=== PATIENT | female | born 1945 | race Caucasian/White ===

== ENCOUNTER 2017-08-29 03:20 | Inpatient (IN) | payer MEDICARE, OTHER ==
[2017-08-29] MEDS ORDERED: Aspirin 81 MG Tab.Chew PO ONE (04:26)
[2017-08-29] MEDS ORDERED: fentaNYL 100 MCG/2 ML SDV IVPUSH ONE ×5 (04:27→08:46)
[2017-08-29] MEDS ORDERED: Ondansetron 4 MG/2 ML SDV IVPUSH ONE ×2 (04:28→07:32)
--- NOTE | 2017-08-29 04:30 | EDM.PDOC ---
<OfficerMicah - Last Filed: 08/29/17 04:30> ED HPI GENERAL MEDICAL PROBLEM - General Chief Complaint: Abdominal Pain Stated Complaint: ABD PAIN Time Seen by Provider: 08/29/17 04:21 Source of Information: Reports: Patient, RN Notes Reviewed History Limitations: Reports: No Limitations - History of Present Illness INITIAL COMMENTS - FREE TEXT/NARRATIVE: 71-year-old female presents to the emergency department day complaint of epigastric pain she states it's in the center of the chest wraps around both sides and go straight into the back. She feels short of breath with this has had nausea and vomiting no diaphoresis pain started last night at 5:30 Upper Abdominal Pain Score (Numeric/FACES): 9 - Related Data Allergies Allergy/AdvReac Type Severity Reaction Status Date / Time Sulfa (Sulfonamide Allergy Itching Verified 08/29/17 03:47 Antibiotics) tramadol Allergy Hallucinati Verified 08/29/17 03:47 ons Home Meds: Home Meds *Antidepressant Med - Blue Pil 08/29/17 [History] Calcium Carbonate [Calcium] 600 mg PO BID 08/29/17 [History] Omeprazole 20 mg PO DAILY 08/29/17 [History] Past Medical History HEENT History: Reports: Allergic Rhinitis, Impaired Vision Cardiovascular History: Reports: Blood Clots/VTE/DVT Respiratory History: Reports: Sleep Apnea Gastrointestinal History: Reports: Colon Polyp, GERD 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: Musculoskeletal History: Reports: Arthritis Hematologic History: Reports: Blood Transfusion(s) Dermatologic History: Reports: Eczema - Infectious Disease History Infectious Disease History: Reports: Chicken Pox, Measles - Past Surgical History HEENT Surgical History: Reports: Oral Surgery, Other (See Below) Other HEENT Surgeries/Procedures: ear drum replaced GI Surgical History: Reports: Colonoscopy, Polypectomy Female Surgical History: Reports: Section Musculoskeletal Surgical History: Reports: Knee Replacement, Other (See Below) Other Musculoskeletal Surgeries/Procedures:: foot surgeries Social & Family History - Tobacco Use Smoking Status *Q: Never Smoker - Caffeine Use Caffeine Use: Reports: Coffee - Alcohol Use Days Per Week of Alcohol Use: 5 Number of Drinks Per Day: 3 Total Drinks Per Week: 15 - Recreational Drug Use Recreational Drug Use: No ED ROS GENERAL - Review of Systems Review Of Systems: See Below Constitutional: Reports: No Symptoms HEENT: Reports: No Symptoms Respiratory: Reports: Shortness of Breath Cardiovascular: Reports: No Symptoms GI/Abdominal: Reports: Abdominal Pain (Epigastric pain), Nausea, Vomiting : Reports: No Symptoms Musculoskeletal: Reports: No Symptoms Skin: Reports: No Symptoms ED EXAM, GENERAL - Physical Exam Exam: See Below Exam Limited By: No Limitations General Appearance: Alert, Mild Distress Throat/Mouth: Normal Inspection, Normal Lips, Normal Teeth, Normal Gums, Normal Oropharynx, Normal Voice, No Airway Compromise Head: Atraumatic, Normocephalic Neck: Normal Inspection, Supple, Non-Tender, Full Range of Motion Respiratory/Chest: No Respiratory Distress, Lungs Clear, Normal Breath Sounds, No Accessory Muscle Use Cardiovascular: No Murmur, Bradycardia GI/Abdominal: Soft, Non-Tender Back Exam: Normal Inspection. No: CVA Tenderness (R), CVA Tenderness (L) Extremities: No Pedal Edema Course - Vital Signs Last Recorded V/S: Last Vital Signs Temp 36.1 C 08/29/17 07:54 Pulse 60 08/29/17 07:54 Resp 16 08/29/17 07:54 BP 179/68 H 08/29/17 07:54 Pulse Ox 98 08/29/17 07:54 - Orders/Labs/Meds Orders: Active Orders 24 hr Category Date Time Status Cardiac Monitoring [RC] .As Directed Care 08/29/17 04:26 Active EKG Documentation Completion [RC] ASDIRECTED Care 08/29/17 04:27 Active Peripheral IV Care [RC] . DIRECTED Care 08/29/17 04:28 Active Abdomen Pelvis w Cont [CT] Stat Exams 08/29/17 06:00 Taken Chest 2V [CR] Stat Exams 08/29/17 04:27 Taken Sodium Chloride 0.9% [Saline Flush] Med 08/29/17 04:28 Active 10 ml FLUSH ASDIRECTED PRN Peripheral IV Insertion Adult [OM.PC] Urgent Oth 08/29/17 04:28 Ordered EKG 12 Lead [EK] Stat Ther 08/29/17 04:27 Ordered Medication Orders Sodium Chloride (Saline Flush) 10 ml FLUSH ASDIRECTED PRN PRN Reason: Keep Vein Open Last Admin: 08/29/17 07:48 Dose: 10 ml Admin: 08/29/17 07:42 Dose: 10 ml Admin: 08/29/17 05:00 Dose: 10 ml Labs: Laboratory Tests 08/29/17 08/29/17 08/29/17 Range/Units 04:30 04:30 04:30 WBC 8.6 (4.5-11.0) K/uL RBC 4.43 (3.30-5.50) M/uL Hgb 13.3 (12.0-15.0) g/dL Hct 39.8 (36.0-48.0) % MCV 90 (80-98) fL MCH 30 (27-31) pg MCHC 33 (32-36) % Plt Count 274 (150-400) K/uL Neut % (Auto) 82 H (36-66) % Lymph % (Auto) 12 L (24-44) % [place] % (Auto) 6 (2-6) % Eos % (Auto) 0 L (2-4) % Baso % (Auto) 0 (0-1) % D-Dimer, Quantitative 233 (0.0-400.0) ng/mL Sodium 139 L (140-148) mmol/L Potassium 4.3 (3.6-5.2) mmol/L Chloride 104 (100-108) mmol/L Carbon Dioxide 24 (21-32) mmol/L Anion Gap 15.3 H (5.0-14.0) mmol/L BUN 21 H (7-18) mg/dL Creatinine 1.0 (0.6-1.0) mg/dL Est Cr Clr Drug Dosing 51.63 mL/min Estimated GFR (MDRD) 55 L (>60) Glucose 146 H (74-106) mg/dL Calcium 9.3 (8.5-10.1) mg/dL Total Bilirubin 0.4 (0.2-1.0) mg/dL AST 18 (15-37) U/L ALT 25 (12-78) U/L Alkaline Phosphatase 62 (46-116) U/L CK-MB (CK-2) 1.6 (0-3.6) mg/mL Troponin I < 0.017 (0.000-0.056) ng/mL Total Protein 7.3 (6.4-8.2) g/dL Albumin 3.6 (3.4-5.0) g/dL Globulin 3.7 H (2.3-3.5) g/dL Albumin/Globulin Ratio 1.0 L (1.2-2.2) Lipase 88 (73-393) U/L Meds: Medications Generic Name Dose Route Start Last Admin Trade Name Freq PRN Reason Stop Dose Admin Sodium Chloride 10 ml 08/29/17 04:28 08/29/17 07:48 Saline Flush FLUSH 10 ml ASDIRECTED PRN Administration Keep Vein Open Discontinued Medications Generic Name Dose Route Start Last Admin Trade Name Freq PRN Reason Stop Dose Admin Aspirin 324 mg 08/29/17 04:26 08/29/17 04:59 Aspirin PO 08/29/17 04:27 324 mg ONETIME ONE Administration Fentanyl 50 mcg 08/29/17 04:27 08/29/17 05:00 Sublimaze IVPUSH 08/29/17 04:28 50 mcg ONETIME ONE Administration Fentanyl 50 mcg 08/29/17 06:00 08/29/17 06:06 Sublimaze IVPUSH 08/29/17 06:01 50 mcg ONETIME ONE Administration Fentanyl 100 mcg 08/29/17 07:32 Sublimaze IVPUSH 08/29/17 07:33 ONETIME ONE Fentanyl 50 mcg 08/29/17 07:44 08/29/17 07:46 Sublimaze IVPUSH 08/29/17 07:45 50 mcg ONETIME ONE Administration Fentanyl 50 mcg 08/29/17 08:46 Sublimaze IVPUSH 08/29/17 08:47 ONETIME ONE Lactated Ringer's 1,000 mls @ 999 mls/hr 08/29/17 05:46 08/29/17 06:06 Ringers, Lactated IV 08/29/17 06:46 999 mls/hr BOLUS ONE Administration Sodium Chloride 82 mls @ 4 mls/sec 08/29/17 06:08 08/29/17 06:18 Normal Saline IV 08/29/17 06:09 4 mls/sec ASDIRECTED STA Administration Iopamidol 138 ml 08/29/17 06:07 08/29/17 06:18 Isovue-300 (61%) IV 08/29/17 06:08 150 ml . DIRECTED STA Administration Ondansetron HCl 4 mg 08/29/17 04:28 08/29/17 05:00 Zofran IVPUSH 08/29/17 04:29 4 mg ONETIME ONE Administration Ondansetron HCl 4 mg 08/29/17 07:32 08/29/17 07:40 Zofran IVPUSH 08/29/17 07:33 4 mg ONETIME ONE Administration Departure - Departure Disposition: Admitted As Inpatient 68 Clinical Impression: Cholecystitis Referrals: PCP,None [Primary Care Provider] - Forms: ED Department Discharge <Bradley Serrano - Last Filed: 08/29/17 08:54> Course - Vital Signs Text/Narrative:: Dr. Eulogio Livingston notified @ [facility] [place], to see in ER. - Radiology Interpretation Free Text/Narrative:: Abdominal CT suggestive of acute cholecystitis. CT Results Date: 08/29/17 CT Results Time: 08:05 Departure - Departure Time of Disposition: 09:00 Condition: Fair
[2017-08-29] MEDS: Sodium Chloride 0.9% 10 ML Syringe FLUSH PRN ×4 (05:00→09:03)
[2017-08-29] MEDS ORDERED: Lactated Ringers 1,000 ML IV ONE (05:46)
[2017-08-29] MEDS ORDERED: Iopamidol 612 MG/ML 150 ML Bottle IV STA (06:07)
[2017-08-29] MEDS ORDERED: cefOXitin 2 GM in Sodium Chloride 0.9% 50 ML IV ONE (09:29)
--- NOTE | 2017-08-29 09:33 | CR ---
CHEST: 2 view CLINICAL HISTORY:Chest pain COMPARISON:None FINDINGS: Heart size and pulmonary vascularity are normal. No infiltrate effusion or pneumothorax is seen.. IMPRESSION: No acute cardiopulmonary process
--- NOTE | 2017-08-29 09:37 | PCM.HP ---
H&P History of Present Illness - General Date of Service: 08/29/17 Source of Information: Patient History Limitations: Reports: No Limitations - History of Present Illness Initial Comments - Free Text/Narative: Ani states that she developed mid epigastric chest pain that radiated around to her back and straight through her back between her shoulder blades. Associated with nausea, diaphoresis and shortness of breath. After a work up in ED she was found to have cholecysitis. Diet yesterday consisted of fatty foods and 2 - 3 beers and another alcoholic beverage. States she had one episode about 30 years ago and then another episode about 1 month ago after eating a deep fat fried shrimp basket. Onset of Symptoms: Reports: Today, Sudden Duration of Symptoms: Reports: Constant Location: Reports: Abdomen Quality: Reports: Pressure, Stabbing, Throbbing Improves with: Reports: Medication Worsens with: Reports: None Context: Reports: Sick Contact Associated Symptoms: Reports: Diaphoresis, Nausea/Vomiting Upper Abdominal Pain Score (Numeric/FACES): 4 - Related Data Allergies/Adverse Reactions: Allergies Allergy/AdvReac Type Severity Reaction Status Date / Time Sulfa (Sulfonamide Allergy Itching Verified 08/29/17 03:47 Antibiotics) tramadol Allergy Hallucinati Verified 08/29/17 03:47 ons Home Medications: Home Meds *Antidepressant Med - Blue Pil 08/29/17 [History] Calcium Carbonate [Calcium] 600 mg PO BID 08/29/17 [History] Omeprazole 20 mg PO DAILY 08/29/17 [History] Past Medical History HEENT History: Reports: Allergic Rhinitis, Impaired Vision Cardiovascular History: Reports: Blood Clots/VTE/DVT Respiratory History: Reports: Sleep Apnea Gastrointestinal History: Reports: Colon Polyp, GERD 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: Musculoskeletal History: Reports: Arthritis Hematologic History: Reports: Blood Transfusion(s) Dermatologic History: Reports: Eczema - Infectious Disease History Infectious Disease History: Reports: Chicken Pox, Measles - Past Surgical History HEENT Surgical History: Reports: Oral Surgery, Other (See Below) Other HEENT Surgeries/Procedures: ear drum replaced GI Surgical History: Reports: Colonoscopy, Polypectomy Female Surgical History: Reports: Section Musculoskeletal Surgical History: Reports: Knee Replacement, Other (See Below) Other Musculoskeletal Surgeries/Procedures:: foot surgeries Social & Family History - Tobacco Use Smoking Status *Q: Never Smoker - Caffeine Use Caffeine Use: Reports: Coffee - Alcohol Use Days Per Week of Alcohol Use: 5 Number of Drinks Per Day: 3 Total Drinks Per Week: 15 - Recreational Drug Use Recreational Drug Use: No H&P Review of Systems - Review of Systems: Review Of Systems: See Below General: Reports: Fatigue HEENT: Reports: No Symptoms Pulmonary: Reports: Other (Sleep apnea - uses a CPAP at home ) Cardiovascular: Reports: Chest Pain (more upper abdomen.) Gastrointestinal: Reports: Abdominal Pain (see above) Genitourinary: Reports: No Symptoms Musculoskeletal: Reports: Joint Swelling Skin: Reports: No Symptoms Psychiatric: Reports: No Symptoms Exam - Exam Exam: See Below - Vital Signs Vital Signs: Last Vital Signs Temp 97 F 08/29/17 07:54 Pulse 60 08/29/17 07:54 Resp 16 08/29/17 07:54 BP 179/68 H 08/29/17 07:54 Pulse Ox 98 08/29/17 07:54 Weight: 202 lb 9.677 oz - Exam General: Alert, Oriented, Mild Distress HEENT: PERRLA Neck: Supple, Trachea Midline Lungs: Clear to Auscultation, Normal Respiratory Effort Cardiovascular: Regular Rate, Regular Rhythm GI/Abdominal Exam: Other (Tenderness in the right upper quadrant and mid epigastric area) (Female) Exam: Deferred Rectal (Female) Exam: Deferred Back Exam: Normal Inspection, Full Range of Motion Extremities: Normal Inspection, Normal Range of Motion Skin: Warm, Dry, Intact Neurological: Cranial Nerves Intact Neuro Extensive - Mental Status: Alert, Oriented x3, Normal Mood/Affect Neuro Extensive - Motor, Sensory, Reflexes: CN II-XII Intact Psychiatric: Alert, Normal Affect - Patient Data Lab Results Last 24 hrs: Laboratory Results - last 24 hr 08/29/17 08/29/17 08/29/17 Range/Units 04:30 04:30 04:30 WBC 8.6 (4.5-11.0) K/uL RBC 4.43 (3.30-5.50) M/uL Hgb 13.3 (12.0-15.0) g/dL Hct 39.8 (36.0-48.0) % MCV 90 (80-98) fL MCH 30 (27-31) pg MCHC 33 (32-36) % Plt Count 274 (150-400) K/uL Neut % (Auto) 82 H (36-66) % Lymph % (Auto) 12 L (24-44) % [place] % (Auto) 6 (2-6) % Eos % (Auto) 0 L (2-4) % Baso % (Auto) 0 (0-1) % D-Dimer, Quantitative 233 (0.0-400.0) ng/mL Sodium 139 L (140-148) mmol/L Potassium 4.3 (3.6-5.2) mmol/L Chloride 104 (100-108) mmol/L Carbon Dioxide 24 (21-32) mmol/L Anion Gap 15.3 H (5.0-14.0) mmol/L BUN 21 H (7-18) mg/dL Creatinine 1.0 (0.6-1.0) mg/dL Est Cr Clr Drug Dosing 51.63 mL/min Estimated GFR (MDRD) 55 L (>60) Glucose 146 H (74-106) mg/dL Calcium 9.3 (8.5-10.1) mg/dL Total Bilirubin 0.4 (0.2-1.0) mg/dL AST 18 (15-37) U/L ALT 25 (12-78) U/L Alkaline Phosphatase 62 (46-116) U/L CK-MB (CK-2) 1.6 (0-3.6) mg/mL Troponin I < 0.017 (0.000-0.056) ng/mL Total Protein 7.3 (6.4-8.2) g/dL Albumin 3.6 (3.4-5.0) g/dL Globulin 3.7 H (2.3-3.5) g/dL Albumin/Globulin Ratio 1.0 L (1.2-2.2) Lipase 88 (73-393) U/L Result Diagrams: 08/29/17 04:30 08/29/17 04:30 - Problem List (1) Bradycardia SNOMED Code(s): 89759321 ICD Code: R00.1 - BRADYCARDIA, UNSPECIFIED Status: Acute Current Visit: Yes (2) Cholecystitis SNOMED Code(s): 05181862 ICD Code: K81.9 - CHOLECYSTITIS, UNSPECIFIED Status: Acute Current Visit : Yes (3) Abdominal pain SNOMED Code(s): 98326834 ICD Code: R10.9 - UNSPECIFIED ABDOMINAL PAIN Status: Acute Current Visit : No Qualifiers: Abdominal location: right upper quadrant Qualified Code(s): R10.11 - Right upper quadrant pain Problem List Initiated/Reviewed/Updated: Yes Orders Last 24hrs: Active Orders 24 hr Category Date Time Status Cardiac Monitoring [RC] .As Directed Care 08/29/17 04:26 Active EKG Documentation Completion [RC] ASDIRECTED Care 08/29/17 04:27 Active Peripheral IV Care [RC] . DIRECTED Care 08/29/17 04:28 Active Abdomen Pelvis w Cont [CT] Stat Exams 08/29/17 06:00 Taken Chest 2V [CR] Stat Exams 08/29/17 04:27 Taken Dextrose 5%-Lactated Ringers 1,000 ml Med 08/29/17 09:30 Active IV ASDIRECTED Sodium Chloride 0.9% [Saline Flush] Med 08/29/17 04:28 Active 10 ml FLUSH ASDIRECTED PRN cefOXitin [Mefoxin] 2 gm Med 08/29/17 09:29 Active Sodium Chloride 0.9% [Normal Saline] 50 ml IV ONETIME Peripheral IV Insertion Adult [OM.PC] Urgent Oth 08/29/17 04:28 Ordered EKG 12 Lead [EK] Stat Ther 08/29/17 04:27 Ordered Medication Orders Cefoxitin Sodium 2 gm/ Sodium (Chloride) 50 mls @ 100 mls/hr IV ONETIME ONE Stop: 08/29/17 09:58 Dextrose/Lactated Ringer's (Dextrose 5%-Lactated Ringers) 1,000 mls @ 100 mls/ hr IV ASDIRECTED ORTIZ Sodium Chloride (Saline Flush) 10 ml FLUSH ASDIRECTED PRN PRN Reason: Keep Vein Open Last Admin: 08/29/17 09:03 Dose: 10 ml Admin: 08/29/17 07:48 Dose: 10 ml Admin: 08/29/17 07:42 Dose: 10 ml Admin: 08/29/17 05:00 Dose: 10 ml Assessment/Plan Comment:: Assessment: Cholecystitis Plan: Laparoscopic possible Open Cholecystectomy for Acute Cholecystitis - General Anesthesia - Case to Follow - Rob Livingston MD Cefoxitin 2 grams economics consultant to OR Cleared for General Anesthesia Shoshana Martinez 08/29/17
[2017-08-29] MEDS ORDERED: Bupivacaine 0.5%/EPINEPHrine 1:200,000 50 ML MDV ONE (09:43)
[2017-08-29] MEDS: Dextrose 5%-Lactated Ringers 1,000 ML IV SCH ×3 (09:46→23:09)
[2017-08-29] MEDS ORDERED: Dexamethasone 4 MG/ML SDV ONE (09:57)
[2017-08-29] MEDS ORDERED: Ondansetron 4 MG/2 ML SDV ONE (09:57)
[2017-08-29] MEDS ORDERED: Propofol 200 MG/20 ML SDV ONE (09:57)
[2017-08-29] MEDS ORDERED: Neostigmine Methylsulfate 1 MG/ML 5 ML Syringe ONE (09:57)
[2017-08-29] MEDS ORDERED: Glycopyrrolate 0.2 MG/ML 5 ML MDV ONE (09:57)
[2017-08-29] MEDS ORDERED: Succinylcholine 200 MG/10 ML MDV ONE (09:57)
[2017-08-29] MEDS ORDERED: fentaNYL 250 MCG/5 ML SDV ONE (09:57)
[2017-08-29] MEDS ORDERED: Rocuronium 50 MG/5 ML Vial ONE (09:57)
[2017-08-29] MEDS ORDERED: Ketamine 500 MG/5 ML MDV IV SCH (10:15)
[2017-08-29] MEDS ORDERED: Ropivacaine 45 ML, Dexamethasone 8 MG, EPINEPHrine 0.4 MG, Sodium Chloride 0.9% 32.6 ML NERVRT SCH ×4 (10:15)
[2017-08-29] MEDS ORDERED: HYDROmorphone/Normal Saline 15 MG/30 ML PCA IV PRN (12:26)
[2017-08-29] MEDS ORDERED: Naloxone 0.4 MG/ML SDV IV PRN (12:26)
[2017-08-29] MEDS: Ondansetron 4 MG/2 ML SDV IVPUSH PRN ×3 (12:37→22:50)
[2017-08-29] MEDS: Acetaminophen/HYDROcodone 325-5 MG Tab PO PRN ×3 (12:50→22:50)
[2017-08-29] MEDS ORDERED: Pantoprazole 40 MG Vial IV SCH (14:00)
[2017-08-29] MEDS: Sertraline 50 MG Tab PO SCH (16:25)
[2017-08-29] MEDS: cefOXitin 2 GM in Sodium Chloride 0.9% 50 ML IV SCH ×2 (16:25→22:50)
[2017-08-30] MEDS: cefOXitin 2 GM in Sodium Chloride 0.9% 50 ML IV SCH ×2 (04:16→09:28)
[2017-08-30] MEDS: Acetaminophen/HYDROcodone 325-5 MG Tab PO PRN (07:19)
[2017-08-30] MEDS: Sertraline 50 MG Tab PO SCH (08:15)
[2017-08-30] MEDS ORDERED: Magnesium Hydroxide 400 MG/5 ML Susp 30 ML Cup PO ONE (10:55)
--- NOTE | 2017-08-30 11:59 | OR ---
DATE OF PROCEDURE: 08/29/2017 PREOPERATIVE DIAGNOSIS: Acute cholecystitis. POSTOPERATIVE DIAGNOSES: 1. [id number] cholecystitis and cholelithiasis with necrosis of adherent omentum. 2. Pericholecystic abscess. OPERATIVE PROCEDURES: Diagnostic laparoscopy with; 1. Cholecystectomy (29034). 2. Drainage of pericholecystic abscess or inflammatory fluid collection (27778). ANESTHESIA: General. ASSISTANTS: 1. Shoshana Chase PA-C. 2. JESI Hurd. INDICATION FOR PROCEDURE: This 71-year-old presented to the emergency room earlier this morning with a picture of an acute cholecystitis. The plan is to proceed with a laparoscopic or open cholecystectomy. Potential risks including bleeding, infection, injury to underlying viscera such as common bile duct, possible migration of stones in the common bile duct, requiring additional procedures for correction, as well as the possibility of cardiopulmonary, septic, or hemorrhagic complications leading to were discussed, and the patient wishes to proceed. DETAILS OF PROCEDURE: The patient was taken to the operating room and placed in a supine position. After general endotracheal anesthesia was induced, the abdomen was prepped and draped. A transverse incision was made just to the right of the umbilicus. This appeared to be the safest location for placement of the initial trocar in terms of there being quite a bit of palpable inflammation in the right upper quadrant and the desire to avoid placement of a trocar in the direct midline. The peritoneal cavity was entered under direct vision with an Optiview trocar and inflated to 15 mmHg pressure with CO2. Laparoscope was then reinserted. No underlying trocar insertion site injuries were seen. Following this, a 5-mm right upper quadrant trocar as well as a 12-mm epigastric trocar were placed. The area around the gallbladder was examined. The patient had dense inflammatory adherence of the omentum and the gallbladder, as this was dissected free with the aid of a combination of blunt and Harmonic scalpel dissection. Areas of focal fat necrosis in the omentum were encountered. As one dissected further posteriorly, a purulent fluid collection was noted with an intense peritonitis located in the pericholecystic area, particularly posterior to the gallbladder. This fluid was evacuated and cultures were sent. The gallbladder, at this point, was extremely densely distended. Given this, an opening was made and the bile was then evacuated, allowing a more satisfactory dissection. Once the omentum was finished being taken off, the dissection was continued around the gallbladder neck-cystic duct junction. The area was quite edematous and friable. A clear definition of the gallbladder neck-cystic duct junction and the adjacent cystic artery were at that point visible. An incision was made to divide the cystic duct-gallbladder neck junction with a АЛЕКСАНДР stapler, and this was accomplished with a АЛЕКСАНДР hinds load. The cystic artery was then clipped 3 times proximally and once distally and divided with Harmonic Scalpel. The gallbladder was then dissected off the gallbladder bed with Harmonic Scalpel. Some additional possible vascular attachments along the upper aspect of the gallbladder neck were also then clipped during the course of that dissection. Gallbladder was then delivered through the epigastric trocar site through a specimen bag and was noted to contain multiple small yellow-green stones. The area of dissection was then inspected. No bleeding or bile leaks were seen. A Chris- Guerrier drain was taken out through a right lateral trocar site and placed adjacent to the gallbladder bed. At that point, the trocars were removed, and the peritoneal cavity deflated. Incisions were closed with some 0 Vicryl stitch at the fascia level and 4-0 Vicryl skin stitch. Dressing was applied. The patient was taken to the recovery room in a satisfactory condition. There were no evident of complications. Rob Livingston MD Job #: [id number]
--- NOTE | 2017-08-30 12:32 | DISCH ---
ADMISSION DIAGNOSES: 1. Acute cholecystitis. 2. Bradycardia. 3. Sleep apnea. 4. Joint pain and swelling. DISCHARGE DIAGNOSES: 1. Laparoscopic cholecystectomy for acute cholecystitis. 2. Intraoperative bradycardia with escape PVCs. HISTORY: Ani Tomas is a 71-year-old female who presented to the emergency department, [place], [place]; with sudden onset of abdominal pain. After preoperative evaluation and discussion of possible risks and possible complications, she wished to proceed with surgical procedure. HOSPITAL COURSE: Ani had her surgery on the day of admission, 08/29/2017. She had no operative complications with the exception of bradycardia and some escape PVCs. Her pain was well managed. Her activity was good. Oral intake was adequate. She was able to be discharged to home on postoperative day #1. 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 She was completely asymptomatic. O2 saturations 96% to 94% on 1.5 L nasal cannula of O2. PHYSICAL EXAMINATION: GENERAL: Ani Tomas is a 71-year-old female. VITAL SIGNS: Height is 5 feet 7 inches. Weight is 202 pounds, BMI 31. TPR 97.9, 54, 16, and blood pressure 125/57. HEENT: Negative. NECK: Supple. HEART: Regular rate and rhythm. LUNGS: Clear. ABDOMEN: WESLEY drain is intact and draining a pink serosanguineous drainage. Incisions look good. Sutures intact. Abdominal binder is on. WESLEY drain will be removed prior to discharge and 4x4 will be placed over that. EXTREMITIES: Without peripheral edema. DISPOSITION: Discharged to home. CONDITION: Stable and improving. FOLLOWUP APPOINTMENTS: With Shoshana Chase PA-C, on 09/07/2017 at 10:15 a.m. or with her primary care provider if she chooses to go home. DISCHARGE MEDICATIONS: Home Medications: 1. Elizabeth 5/325 mg 1 to 2 every 4 hours p.r.n. #30. 2. Augmentin 875 mg 1 p.o. b.i.d., #20. 3. Diflucan 200 mg p.o. one time at onset of symptoms. Repeat in 1 week. 4. Milk of magnesia 30 mL, two were sent home with the patient to take p.r.n. daily for constipation. She is to resume; 1. Zoloft 50 mg daily. 2. Calcium carbonate 600 mg p.o. b.i.d. 3. Omeprazole 20 mg p.o. daily. DIET: Usual diet as tolerated. Avoid fatty, spicy, and rich foods for about 1 month. Drink 8 to 10 glasses of water a day. ACTIVITY: As tolerated. No lifting greater than 10 pounds for 2 weeks. Other activity, walk at least 6 times daily inside your home. Driving, do not drive while on pain medication. Shower/bathing, may shower. DISCHARGE INSTRUCTIONS: Notify provider if any fever, increased pain, swelling, redness, drainage, nausea, or vomiting. Wound incision care; keep site clean and dry. Wear abdominal binder for 2 weeks and then as tolerated. Special Instructions: 1. Use incentive spirometer 10 times every hour while awake. 2. To follow up with primary care provider in regard to low heart rate.
--- NOTE | 2017-08-31 08:08 | OR ---
DATE OF PROCEDURE: 08/29/2017 ADDENDUM: Physician miller head assistant wet process, Shoshana Chase, played an essential role in assisting in this case, helping to position the patient, retract sutures, as well as suturing and cutting sutures when indicated. Her presence improved patient's safety and decreased the operative time. Rob Livingston MD Job #: [id number]
== END 2017-08-30 11:10 | disposition home or self-care (01) | DRG 417 ==
LOC: JP.ED 03:20 → JP.SDS 09:57 → JP.2SS 11:45
PROVIDERS: ADMIT Surgery; ATTEND Surgery
PROC: 0FT44ZZ Resection of Gallbladder, Percutaneous Endoscopic Approach (ICD-10-PCS; principal; 2017-08-29)
PROC: 0W9G40Z Drainage of Peritoneal Cavity with Drainage Device, Percutaneous Endoscopic Approach (ICD-10-PCS; 2017-08-29)
PROC: 0W9J40Z Drainage of Pelvic Cavity with Drainage Device, Percutaneous Endoscopic Approach (ICD-10-PCS; 2017-08-29)
PROC: 0DNU4ZZ Release Omentum, Percutaneous Endoscopic Approach (ICD-10-PCS; 2017-08-29)
DX: K80.12 Calculus of gallbladder with acute and chronic cholecystitis without obstruction (principal); K55.069 Acute infarction of intestine, part and extent unspecified; K82.8 Other specified diseases of gallbladder; R10.11 Right upper quadrant pain; R00.1 Bradycardia, unspecified; K66.0 Peritoneal adhesions (postprocedural) (postinfection); K21.9 Gastro-esophageal reflux disease without esophagitis; M19.90 Unspecified osteoarthritis, unspecified site; Z86.718 Personal history of other venous thrombosis and embolism; G47.30 Sleep apnea, unspecified; Z99.89 Dependence on other enabling machines and devices; H54.7 Unspecified visual loss; Z96.659 Presence of unspecified artificial knee joint; Z88.2 Allergy status to sulfonamides; Z88.8 Allergy status to other drugs, medicaments and biological substances
CPT/HCPCS: 36415; 47562; 49020; 71046 ×2; 74177; 80053; 82553; 83690; 84484; 85025; 85379; 87070; 87075; 87205; 93005; A9270; J0171; J0330; J0694; J1100 ×2; J2405 ×3; J2704; J2710; J2795; J3010 ×5; J7030; J7042; J7050 ×6; J7120; 83036; 83735; 83880; 84100; 85027; 93010; 94762; 96361; 96365; 96375; 96376; 99285; 99285-25; C9113